=== PATIENT | male | born 1995 | race Two or more races ===

== ENCOUNTER 2020-12-26 20:38 | Emergency (ER) | payer MEDICAID, OTHER ==
[~2020-12-26] VITALS: Ht 170.2 cm; Wt 81.6 kg
[2020-12-27 01:26] VITALS: BP 120/75
== END 2020-12-27 01:29 | disposition home or self-care (01) ==
LOC: ER 20:38
DX: K59.00 Constipation, unspecified (principal); K64.9 Unspecified hemorrhoids; J45.909 Unspecified asthma, uncomplicated; Z76.0 Encounter for issue of repeat prescription; Z88.8 Allergy status to other drugs, medicaments and biological substances
CPT/HCPCS: 74176